=== PATIENT | male | born 1955 | race Asian ===

== ENCOUNTER 2025-05-26 22:17 | Emergency (ER) | payer OTHER ==
[~2025-05-26] VITALS: Ht 165.1 cm; Wt 68.2 kg
[2025-05-26 22:21] VITALS: TEMP 97.7
[2025-05-26] MEDS ORDERED: SACU1TAB PO (22:28)
[2025-05-26] MEDS ORDERED: NITR0.4T52 SL (22:28)
[2025-05-26] MEDS ORDERED: ATOR20TA PO (22:28)
[2025-05-26] MEDS ORDERED: INSLAN SQ (22:28)
[2025-05-26] MEDS ORDERED: CARV25 PO (22:28)
[2025-05-26] MEDS ORDERED: ASPI-1522 PO (22:28)
[2025-05-26] MEDS ORDERED: CHOL500013 PO (22:28)
[2025-05-26 23:05] LABS: PLATELET COUNT (AUTO) 126 K/uL (150-450); RED BLOOD CELL COUNT(AUTO) 4.93 MIL/uL (4.50-5.90); RED CELL DISTRIBUTION WIDTH 14.9 % (11.5-14.5); WHITE BLOOD COUNT (AUTO) 6.7 K/uL (4.5-11.0)
[2025-05-26 23:10] LABS: CALCIUM, TOTAL 8.9 mg/dL (8.8-10.5); CREATININE 2.32 mg/dL (0.60-1.30); GLOMERULAR FILTR. RATE CALC 28.0 mL/min (>60); GLUCOSE,RANDOM 217.0 mg/dL (70-110); SODIUM SERUM 143.0 mmol/L (136-145); UREA NITROGEN, BLOOD 41.0 mg/dL (7-18)
[2025-05-27 01:19] VITALS: BP 141/74; PULSE 65; RESP 18; O2SAT 99
== END 2025-05-27 01:19 ==
LOC: EMS 22:27
DX: I13.0 Hypertensive heart and chronic kidney disease with heart failure and stage 1 through stage 4 chronic kidney disease, or unspecified chronic kidney disease (principal); E11.22 Type 2 diabetes mellitus with diabetic chronic kidney disease; N18.9 Chronic kidney disease, unspecified; Z02.89 Encounter for other administrative examinations; E78.00 Pure hypercholesterolemia, unspecified; Z79.82 Long term (current) use of aspirin; Z79.899 Other long term (current) drug therapy
CPT/HCPCS: 80048; 85025; 93005; 99284